=== PATIENT | female | born 1960 | race Caucasian/White ===

== ENCOUNTER 2016-10-17 08:52 | Day surgery (SDC) | payer BC ==
[2016-10-14 12:02] VITALS: BMI 23.1
[2016-10-17] MEDS ORDERED: PROPOFOL 20 ML ONE ×3 (09:28)
[2016-10-17] MEDS ORDERED: LIDOCAINE HCL/PF 2% SDV 5ML VIAL ONE (09:28)
[2016-10-17 11:02] VITALS: TEMP 98.1
[2016-10-17 12:01] VITALS: BP 105/57; PULSE 47
--- NOTE | 2016-10-18 14:37 | PATH ---
Surgical Pathology Report Patient Name: MARGARITA MALIK [facility]. Rec. #: [id number] /Age/Gender: 1960 (Age: 56) / F Account: [id number] Location: [facility]-ENDOSCOPY Taken: 10/17/2016 Received: 10/17/2016 Reported: 10/18/2016 Physicians: Romie Hoover M.D. Specimen(s) Received POLYPS CECUM Clinical History History sessile adenoma Diverticulosis and cecal polyps Final Diagnosis COLON, CECUM, BIOPSY: COLONIC MUCOSA WITH BENIGN LYMPHOID AGGREGATE WITHIN LAMINA PROPRIA. NO ADENOMATOUS CHANGES IDENTIFIED. Electronically Signed Jeffrey Rosa M.D. Gross Description Received in formalin, labeled "polyp cecum" are 2 fraser, irregular portions of soft tissue averaging 0.4 cm. in greatest dimension. The specimens are submitted in toto in one cassette. /10/17/201610/17/2016
== END 2016-10-17 12:07 | disposition home or self-care (01) ==
LOC: JASU-ENDO 08:52
PROVIDERS: ATTEND Internal Medicine Gastroenterology
PROC: 0DBH8ZX Excision of Cecum, Via Natural or Artificial Opening Endoscopic, Diagnostic (ICD-10-PCS; principal; 2016-10-17 09:30)
DX: Z09 Encounter for follow-up examination after completed treatment for conditions other than malignant neoplasm (principal); Z86.010 Personal history of colon polyps; K57.30 Diverticulosis of large intestine without perforation or abscess without bleeding; D12.0 Benign neoplasm of cecum
CPT/HCPCS: 88305-TC

== ENCOUNTER 2018-11-26 09:18 | Day surgery (SDC) | payer BC ==
[2018-11-23 16:09] VITALS: BMI 21.6
[2018-11-26 09:49] VITALS: TEMP 97.9
[2018-11-26 12:08] VITALS: BP 126/79; PULSE 60
--- NOTE | 2018-11-27 18:21 | PATH ---
Surgical Pathology Report Patient Name: MARGARITA MALIK [facility]. Rec. #: [id number] /Age/Gender: 1960 (Age: 58) / F Account: [id number] Location: [facility]-ENDOSCOPY Taken: 11/26/2018 Received: 11/26/2018 Reported: 11/27/2018 Physicians: Romie Hoover M.D. Specimen(s) Received RIGHT COLON POLYP Clinical History History of colon adenomas Postoperative diagnosis: Colon polyp, diverticulosis Final Diagnosis RIGHT COLON POLYP, BIOPSY: COLONIC MUCOSA WITH REACTIVE LYMPHOID AGGREGATE IN THE LAMINA PROPRIA. Electronically Signed Daisy Barger M.D. Gross Description Received in formalin, labeled "polyp right colon" is a fraser, irregular portion of soft tissue measuring 0.2 cm. in greatest dimension. The specimen is submitted in toto in one cassette. /11/26/2018 saudi/11/26/2018
== END 2018-11-26 12:08 | disposition home or self-care (01) ==
LOC: JASU-ENDO 09:18
PROVIDERS: ATTEND Internal Medicine Gastroenterology
PROC: 0DBK8ZX Excision of Ascending Colon, Via Natural or Artificial Opening Endoscopic, Diagnostic (ICD-10-PCS; principal; 2018-11-26 10:45)
DX: Z12.11 Encounter for screening for malignant neoplasm of colon (principal); Z86.010 Personal history of colon polyps; D12.2 Benign neoplasm of ascending colon; K57.30 Diverticulosis of large intestine without perforation or abscess without bleeding
CPT/HCPCS: 88305-TC

== ENCOUNTER 2022-03-14 04:21 | Day surgery (SDC) | payer BC ==
[2022-03-11 11:42] VITALS: BMI 23.0
[2022-03-14 08:52] VITALS: TEMP 97.2
[2022-03-14 09:23] VITALS: BP 127/74; PULSE 54; RESP 15
== END 2022-03-14 09:40 | disposition home or self-care (01) ==
LOC: JASU-ENDO 04:21
PROVIDERS: ATTEND Internal Medicine Gastroenterology
PROC: 0DBP8ZX Excision of Rectum, Via Natural or Artificial Opening Endoscopic, Diagnostic (ICD-10-PCS; 2022-03-14)
PROC: 0DB98ZX Excision of Duodenum, Via Natural or Artificial Opening Endoscopic, Diagnostic (ICD-10-PCS; 2022-03-14)
PROC: 0DB78ZX Excision of Stomach, Pylorus, Via Natural or Artificial Opening Endoscopic, Diagnostic (ICD-10-PCS; 2022-03-14)
PROC: 0DBL8ZX Excision of Transverse Colon, Via Natural or Artificial Opening Endoscopic, Diagnostic (ICD-10-PCS; principal; 2022-03-14 08:00)
DX: Z12.11 Encounter for screening for malignant neoplasm of colon (principal); D12.3 Benign neoplasm of transverse colon; D12.8 Benign neoplasm of rectum; Z85.038 Personal history of other malignant neoplasm of large intestine; K57.30 Diverticulosis of large intestine without perforation or abscess without bleeding; K59.89 Other specified functional intestinal disorders; K30 Functional dyspepsia
CPT/HCPCS: 88305-TC; 88342-TC